=== PATIENT | female | born 2000 | race Caucasian/White ===

== ENCOUNTER 2021-02-15 10:11 | Observation (INO) | payer OTHER ==
[~2021-02-15] VITALS: Ht 165.1 cm; Wt 82.3 kg
[2021-02-15 11:03] LABS: HEMATOCRIT 37.6 % (37.0-47.0); HEMOGLOBIN 12.3 g/dl (12.5-16.0); MEAN CELL VOLUME 92 fl (80.0-100.0); MEAN CORPUSCULAR HEMOGLOBIN 30 pg (27.0-31.0); MEAN CORPUSCULAR HGB CONC 33 g/dl (33.0-37.0); PLATELET COUNT 298 K/mm3 (130-400); RED BLOOD COUNT 4.09 M/mm3 (4.10-5.30); REDCELL DISTRIBUTION WIDTH-CV 12.4 % (11.5-14.5)
[2021-02-15 11:09] LABS: BILIRUBIN,TOTAL 0.7 mg/dL (0.0-1.0); C-REACTIVE PROTEIN 0.6 mg/dL (0.0-0.9); CALCIUM 9.2 mg/dL (8.4-10.2); CREATININE, serum 0.75 (0.52-1.25); POTASSIUM 4.6 mmol/L (3.4-5.0); TOTAL PROTEIN 7.2 gm/dL (6.4-8.2)
[2021-02-15 11:16] LABS: BAND 18 % (0-10); LYMPHOCYTE 4 % (20.0-51.0); NEUTROPHILS 75 % (42.0-75.2); PLATELET ESTIMATE NORMAL (NORMAL)
[2021-02-15 16:58] LABS: COLLECTION METHOD CLEAN CATCH
[2021-02-15 17:06] LABS: MUCOUS Present /lpf; PH 6 (5-8); SQUAMOUS EPITHELIAL 0-2 /hpf; URINE APPEARANCE Hazy; URINE BACTERIA None Seen /hpf; URINE BILIRUBIN Negative (NEGATIVE); URINE BLOOD Negative (NEGATIVE); URINE COLOR Yellow; URINE GLUCOSE Negative (NEGATIVE); URINE KETONE 1+ (NEGATIVE); URINE LEUKOCYTE ESTERASE Negative (NEGATIVE); URINE NITRATE Negative (NEGATIVE); URINE PROTEIN(semi-quant) 1+ (NEGATIVE); URINE RBC 0-2 /hpf; URINE UROBILINOGEN Negative (NEGATIVE)
[2021-02-15] MEDS ORDERED: MOTRIN 800800 MG/TAB PO (20:08)
[2021-02-15] MEDS ORDERED: PERCOCET 325 MG1 TA2 PO (20:08)
[2021-02-15 23:26] LABS: HEMATOCRIT 23.5 % (37.0-47.0); HEMOGLOBIN 7.9 g/dl (12.5-16.0)
[2021-02-16] VITALS (16 sets, daily range): BP systolic 101–133; BP diastolic 46–78; PULSE 75–106; TEMP 97.7–9739
[2021-02-16 05:50] LABS: BASO % 0.2 % (0.0-2.0); EOS % 0.3 % (0-4.0); GRAN # 6.5 (1.4-6.5); GRAN % 72.7 % (42.2-75.2); LYMPH # 1.7 (1.2-3.4); LYMPH % 18.8 % (20.0-51.0); MEAN CELL VOLUME 92 fl (80.0-100.0); MEAN CORPUSCULAR HGB CONC 33 g/dl (33.0-37.0); MEAN PLATELET VOLUME 10.9 fl (7.4-10.4); MONO # 0.7 (0.1-0.6); MONO % 7.6 % (1.7-9.3); RED BLOOD COUNT 2.35 M/mm3 (4.10-5.30); REDCELL DISTRIBUTION WIDTH-CV 12.7 % (11.5-14.5)
[2021-02-16 05:52] LABS: HEMATOCRIT 21.6 % (37.0-47.0); HEMOGLOBIN 7.2 g/dl (12.5-16.0); MEAN CORPUSCULAR HEMOGLOBIN 31 pg (27.0-31.0)
[2021-02-16 05:53] LABS: PLATELET COUNT 161 K/mm3 (130-400)
--- NOTE | 2021-02-16 07:45 | NUR ---
Dr. Mcghee at the bedside. Plan of care for blood transfusion reviewed.
--- NOTE | 2021-02-16 10:45 | NUR ---
Blood transfusion started. See flowsheet for details.
--- NOTE | 2021-02-16 13:50 | NUR ---
Second unit blood transfusion started. See flowsheet for details.
[2021-02-16 16:41] LABS: HEMOGLOBIN 10.4 g/dl (12.5-16.0)
--- NOTE | 2021-02-16 17:00 | NUR ---
Discharge instructions and follow up care reviewed with pt at the bedside. Pt verbalized an understanding, agreed with the plan and states no questions or concerns at this time.
== END 2021-02-16 17:07 | disposition home or self-care (01) ==
LOC: COL.ER 10:11 → OB 19:51
PROVIDERS: Emergency Medicine; ADMIT Obstetrics & Gynecology
DX: O00.90 Unspecified ectopic pregnancy without intrauterine pregnancy (principal); K66.1 Hemoperitoneum; Z79.899 Other long term (current) drug therapy
CPT/HCPCS: G0378; J1885; J2270; J2405; J2550; J2704; J3010; J7030; J9260; P9016